=== PATIENT | female | born 1955 | race Caucasian/White ===

== ENCOUNTER → 2020-05-25 | Outpatient (CLI) | payer OTHER ==
[~2020-05-25] MED LIST: CYCLOBENZAPRINE10 MG PO; CYMBALTA60 MG PO; LEXAPRO20 MG PO; MELOXICAM15 MG PO; NEURONTIN 300300 M1 PO; PRILOSEC OTC20 MG PO; SEROQUEL200 MG PO; TOPROL XL25 MG PO; TRAMADOL 50 MG50 MG PO; XANAX 0.5 MG0.5 M1 PO
== END ==
LOC: M.PC 10:57
PROVIDERS: ATTEND Anesthesiology Pain Medicine
DX: M51.16 Intervertebral disc disorders with radiculopathy, lumbar region (principal); M48.061 Spinal stenosis, lumbar region without neurogenic claudication; I10 Essential (primary) hypertension; E66.01 Morbid (severe) obesity due to excess calories; F41.8 Other specified anxiety disorders; Z96.651 Presence of right artificial knee joint; Z98.890 Other specified postprocedural states

== ENCOUNTER → 2020-06-01 | Outpatient (CLI) | payer OTHER | END | disposition home or self-care (01) | LOC: M.PC 07:48 | PROVIDERS: ATTEND Anesthesiology Pain Medicine | DX: M48.061 Spinal stenosis, lumbar region without neurogenic claudication (principal); M54.16 Radiculopathy, lumbar region; M54.12 Radiculopathy, cervical region; G89.29 Other chronic pain; I10 Essential (primary) hypertension; F32.1 Major depressive disorder, single episode, moderate; F41.9 Anxiety disorder, unspecified; E66.01 Morbid (severe) obesity due to excess calories; G43.909 Migraine, unspecified, not intractable, without status migrainosus; Z98.890 Other specified postprocedural states; Z79.899 Other long term (current) drug therapy; Z96.652 Presence of left artificial knee joint; Z68.42 Body mass index [BMI] 45.0-49.9, adult; Z79.01 Long term (current) use of anticoagulants ==